=== PATIENT | male | born 1980 | race Caucasian/White ===

== ENCOUNTER → 2016-07-16 | Outpatient (REF) ==
[~2016-07-16] MED LIST: FLOMAX 0.40.4 MG/CAP PO; NORCO 325 MG-51 TAB PO; PERCOCET 325 MG1 TA2 PO; ZOFRAN 4MG T4 MG/TAB PO
== END ==
LOC: WSOH 12:24
DX: Z00.00 Encounter for general adult medical examination without abnormal findings (principal)